=== PATIENT | male | born 1970 | race Two or more races ===

== ENCOUNTER 2022-12-17 17:59 | Emergency (ER) | payer BC ==
[2022-12-17] MEDS ORDERED: Promethazine 12.5 MG in Sodium Chloride 0.9% 50 ML IV ONE (19:05)
[2022-12-17] MEDS ORDERED: Sodium Chloride 0.9% 1,000 ML IV ONE (19:05)
[2022-12-17] MEDS ORDERED: Sodium Chloride 0.9% 10 ML Syringe FLUSH PRN (19:05)
[2022-12-17 19:35] LABS: BASOPHILS PERCENT AUTO 0.6 % (0.3-3.8); EOSINOPHILS ABSOLUTE AUTO 0.3 x10-3/uL (0.0-0.6); EOSINOPHILS PERCENT AUTO 3.4 % (0.1-6.8); HEMATOCRIT 48.5 % (38.3-50.1); HEMOGLOBIN 16.2 g/dL (12.9-17.7); LYMPHOCYTES ABSOLUTE AUTO 2.6 x10-3/uL (0.5-4.5); LYMPHOCYTES PERCENT AUTO 31.7 % (15.8-45.3); MEAN CORPUSCULAR HEMOGLOBIN 29.7 pg (27.0-33.3); MEAN CORPUSCULAR HGB CONC 33.3 g/dL (28.7-35.3); MEAN CORPUSCULAR VOLUME 89.2 fL (80.8-98.7); MEAN PLATELET VOLUME 10.1 fL (6.7-11.0); MONOCYTES ABSOLUTE AUTO 0.7 x10-3/uL (0.0-1.2); MONOCYTES PERCENT AUTO 9.1 % (5.5-15.2); NEUTROPHILS ABSOLUTE AUTO 4.5 x10-3/uL (1.7-6.9); NEUTROPHILS PERCENT AUTO 55.2 % (40.3-71.8); PLATELET COUNT,PLT 204 x10(3)uL (117-477); RED BLOOD CELL COUNT 5.44 x10(6)uL (3.90-5.90); RED CELL DISTRIBUTION WIDTH 13.5 % (12.4-15.0); WHITE BLOOD CELL COUNT,WBC 8.2 x10-3/uL (3.2-10.1)
[2022-12-17 19:41] LABS: BLOOD UREA NITROGEN,BUN 14 mg/dL (7-18); BUN/CREATININE RATIO 15.6 (9-20); CALCIUM 8.9 mg/dL (8.6-10.2); CARBON DIOXIDE,CO2 25 mmol/L (21-32); CHLORIDE,CL 102 mmol/L (100-110); CREATININE 0.9 mg/dL (0.70-1.30); EST CRCL DRUG DOSING (CG) 106.58 mL/min; ESTIMATED GFR 103 mL/min (>60); GLUCOSE RANDOM 190 mg/dL (80-116); SODIUM,NA 136 mmol/L (135-145)
[2022-12-17 19:47] LABS: A/G RATIO 0.9; ALANINE AMINOTRANSFERASE,ALT 24 U/L (12-36); ALBUMIN 3.5 g/dL (3.5-5.2); ALKALINE PHOSPHATASE 79 IU/L (56-112); ASPARTATE AMNIOTRANSFERASE,AST 17 IU/L (5-25); BILIRUBIN TOTAL 0.8 mg/dL (0.1-1.3); MAGNESIUM 1.7 mg/dL (1.8-2.5); PROTEIN TOTAL,TP 7.5 g/dL (6.0-8.0)
[2022-12-17 19:51] LABS: TROPONIN I 4.9 pg/mL (4.0-60.3)
[2022-12-17] MEDS ORDERED: Promethazine 25 MG Tab PO ONE ×2 (20:50→21:00)
== END 2022-12-17 21:21 | disposition home or self-care (01) ==
LOC: FB.ED 17:59
DX: E86.0 Dehydration (principal); R10.13 Epigastric pain; R10.84 Generalized abdominal pain; I25.10 Atherosclerotic heart disease of native coronary artery without angina pectoris; I25.2 Old myocardial infarction; F17.210 Nicotine dependence, cigarettes, uncomplicated; Z88.0 Allergy status to penicillin; Z79.899 Other long term (current) drug therapy
CPT/HCPCS: 36415; 80053; 83690; 83735; 84484; 85025; 93005; 93010; 96361; 96374; 99283; 99284-25; A9270-GY; J2550; J3490; J7030

== ENCOUNTER 2023-01-31 14:34 | Emergency (ER) | payer BC ==
[2023-01-31] MEDS ORDERED: Sodium Chloride 0.9% 1,000 ML IV ONE (15:35)
[2023-01-31] MEDS ORDERED: Meclizine 25 MG Tab PO ONE (15:35)
[2023-01-31] MEDS ORDERED: Sodium Chloride 0.9% 10 ML Syringe FLUSH PRN (15:35)
[2023-01-31 15:55] LABS: BASOPHILS ABSOLUTE AUTO 0.1 x10-3/uL (0.0-0.3); EOSINOPHILS ABSOLUTE AUTO 0.2 x10-3/uL (0.0-0.6); EOSINOPHILS PERCENT AUTO 2.3 % (0.1-6.8); HEMATOCRIT 45.3 % (38.3-50.1); HEMOGLOBIN 15.3 g/dL (12.9-17.7); LYMPHOCYTES ABSOLUTE AUTO 2.4 x10-3/uL (0.5-4.5); LYMPHOCYTES PERCENT AUTO 24.3 % (15.8-45.3); MEAN CORPUSCULAR HGB CONC 33.9 g/dL (28.7-35.3); MEAN CORPUSCULAR VOLUME 88.7 fL (80.8-98.7); MEAN PLATELET VOLUME 9.8 fL (6.7-11.0); MONOCYTES ABSOLUTE AUTO 0.8 x10-3/uL (0.0-1.2); MONOCYTES PERCENT AUTO 7.6 % (5.5-15.2); NEUTROPHILS ABSOLUTE AUTO 6.5 x10-3/uL (1.7-6.9); NEUTROPHILS PERCENT AUTO 64.8 % (40.3-71.8); PLATELET COUNT,PLT 238 x10(3)uL (117-477); RED BLOOD CELL COUNT 5.11 x10(6)uL (3.90-5.90); RED CELL DISTRIBUTION WIDTH 13.1 % (12.4-15.0)
[2023-01-31 16:00] LABS: BILIRUBIN,URINE NEGATIVE (NEGATIVE); GLUCOSE,URINE >1000 mg/dL (NORMAL); KETONES,URINE NEGATIVE (NEGATIVE); LEUKOCYTE ESTERASE,URINE NEGATIVE (NEGATIVE); NITRITE,URINE NEGATIVE (NEGATIVE); OCCULT BLOOD,URINE NEGATIVE (NEGATIVE); PROTEIN,URINE NEGATIVE (NEGATIVE); UROBILINOGEN,URINE 1 mg/dL (NEGATIVE)
[2023-01-31 16:02] LABS: BLOOD UREA NITROGEN,BUN 15 mg/dL (7-18); BUN/CREATININE RATIO 12.5 (9-20); CARBON DIOXIDE,CO2 24 mmol/L (21-32); CHLORIDE,CL 100 mmol/L (100-110); CREATININE 1.2 mg/dL (0.70-1.30); EST CRCL DRUG DOSING (CG) 79.94 mL/min; ESTIMATED GFR 73 mL/min (>60); GLUCOSE RANDOM 178 mg/dL (80-116); POTASSIUM,K 4.3 mmol/L (3.5-5.3); SODIUM,NA 135 mmol/L (135-145)
[2023-01-31 16:03] LABS: APPEARANCE,URINE CLEAR (CLEAR); BACTERIA,URINE OCCASIONAL (NS); COLOR,URINE YELLOW (YELLOW); RBC,URINE NOT SEEN (0-5); SQUAMOUS EPITHELIAL CELLS,UR RARE (NS,R,O); WBC,URINE 0-5 (0-5)
[2023-01-31 16:08] LABS: A/G RATIO 0.9; ALANINE AMINOTRANSFERASE,ALT 21 U/L (12-36); ALBUMIN 3.6 g/dL (3.5-5.2); ALKALINE PHOSPHATASE 78 IU/L (56-112); ASPARTATE AMNIOTRANSFERASE,AST 17 IU/L (5-25); BILIRUBIN TOTAL 0.6 mg/dL (0.1-1.3); MAGNESIUM 1.8 mg/dL (1.8-2.5); PROTEIN TOTAL,TP 7.5 g/dL (6.0-8.0)
== END 2023-01-31 17:50 | disposition home or self-care (01) ==
LOC: FB.ED 14:34
DX: R42 Dizziness and giddiness (principal); E86.0 Dehydration; E11.9 Type 2 diabetes mellitus without complications; K21.9 Gastro-esophageal reflux disease without esophagitis; E78.00 Pure hypercholesterolemia, unspecified; I25.2 Old myocardial infarction; I25.10 Atherosclerotic heart disease of native coronary artery without angina pectoris; Z79.899 Other long term (current) drug therapy; Z88.0 Allergy status to penicillin
CPT/HCPCS: 36415; 80053; 81001; 83735; 85025; 86140; 93005; 96361; 96374; 99284-25; A9270-GY; J3360; J3490; J7030

== ENCOUNTER 2023-08-10 18:04 | Emergency (ER) | payer BC ==
[2023-08-10] MEDS ORDERED: Sodium Chloride 0.9% 10 ML Syringe FLUSH PRN (18:38)
[2023-08-10] MEDS ORDERED: Ondansetron 4 MG/2 ML SDV IVPUSH ONE (18:39)
[2023-08-10] MEDS ORDERED: Sodium Chloride 0.9% 1,000 ML IV SCH (18:45)
[2023-08-10 18:47] LABS: BASOPHILS ABSOLUTE AUTO 0.1 x10-3/uL (0.0-0.3); BASOPHILS PERCENT AUTO 1.1 % (0.3-3.8); EOSINOPHILS ABSOLUTE AUTO 0.4 x10-3/uL (0.0-0.6); EOSINOPHILS PERCENT AUTO 3.2 % (0.1-6.8); HEMATOCRIT 44.4 % (38.3-50.1); HEMOGLOBIN 15.5 g/dL (12.9-17.7); LYMPHOCYTES ABSOLUTE AUTO 2.9 x10-3/uL (0.5-4.5); MEAN CORPUSCULAR HEMOGLOBIN 31.7 pg (27.0-33.3); MEAN CORPUSCULAR VOLUME 90.5 fL (80.8-98.7); MEAN PLATELET VOLUME 10.1 fL (6.7-11.0); MONOCYTES ABSOLUTE AUTO 0.9 x10-3/uL (0.0-1.2); MONOCYTES PERCENT AUTO 7.8 % (5.5-15.2); NEUTROPHILS ABSOLUTE AUTO 7.2 x10-3/uL (1.7-6.9); NEUTROPHILS PERCENT AUTO 62.9 % (40.3-71.8); PLATELET COUNT,PLT 221 x10(3)uL (117-477); RED CELL DISTRIBUTION WIDTH 13.6 % (12.4-15.0); WHITE BLOOD CELL COUNT,WBC 11.5 x10-3/uL (3.2-10.1)
[2023-08-10 18:50] LABS: BLOOD UREA NITROGEN,BUN 17 mg/dL (7-18); BUN/CREATININE RATIO 15.5 (9-20); CALCIUM 8.8 mg/dL (8.6-10.2); CARBON DIOXIDE,CO2 27 mmol/L (21-32); CHLORIDE,CL 99 mmol/L (100-110); CREATININE 1.1 mg/dL (0.70-1.30); EST CRCL DRUG DOSING (CG) 83.67 mL/min; ESTIMATED GFR 81 mL/min (>60); GLUCOSE RANDOM 301 mg/dL (80-116); POTASSIUM,K 4.2 mmol/L (3.5-5.3); SODIUM,NA 134 mmol/L (135-145)
[2023-08-10 18:52] LABS: C-REACTIVE PROTEIN 0.77 mg/dL (<0.50)
[2023-08-10 18:56] LABS: ALANINE AMINOTRANSFERASE,ALT 17 U/L (12-36); ALBUMIN 3.6 g/dL (3.5-5.2); ALKALINE PHOSPHATASE 88 IU/L (56-112); ASPARTATE AMNIOTRANSFERASE,AST 14 IU/L (5-25); BILIRUBIN TOTAL 0.5 mg/dL (0.1-1.3); PROTEIN TOTAL,TP 7.3 g/dL (6.0-8.0)
[2023-08-10 19:45] LABS: BILIRUBIN,URINE NEGATIVE (NEGATIVE); GLUCOSE,URINE >1000 mg/dL (NORMAL); KETONES,URINE NEGATIVE (NEGATIVE); LEUKOCYTE ESTERASE,URINE NEGATIVE (NEGATIVE); NITRITE,URINE NEGATIVE (NEGATIVE); OCCULT BLOOD,URINE NEGATIVE (NEGATIVE); PROTEIN,URINE NEGATIVE (NEGATIVE); UROBILINOGEN,URINE NORMAL (NEGATIVE)
[2023-08-10] MEDS ORDERED: Iopamidol 755 Mg/ML 100 ML Bottle IV SCH (19:45)
[2023-08-10] MEDS ORDERED: Ketorolac 30 MG/ML SDV IVPUSH ONE (20:06)
[2023-08-10 20:11] LABS: APPEARANCE,URINE CLEAR (CLEAR); BACTERIA,URINE OCCASIONAL (NS); COLOR,URINE YELLOW (YELLOW); RBC,URINE NOT SEEN (0-5); SQUAMOUS EPITHELIAL CELLS,UR OCCASIONAL (NS,R,O); WBC,URINE 0-5 (0-5)
== END 2023-08-10 20:59 | disposition other institution (70) ==
LOC: FB.ED 18:04
DX: A08.4 Viral intestinal infection, unspecified (principal); E86.0 Dehydration; E78.00 Pure hypercholesterolemia, unspecified; I25.10 Atherosclerotic heart disease of native coronary artery without angina pectoris; I25.2 Old myocardial infarction; E11.9 Type 2 diabetes mellitus without complications; K21.9 Gastro-esophageal reflux disease without esophagitis; Z90.49 Acquired absence of other specified parts of digestive tract; Z79.84 Long term (current) use of oral hypoglycemic drugs; Z79.899 Other long term (current) drug therapy; Z88.0 Allergy status to penicillin
CPT/HCPCS: 36415; 74177; 80053; 81001; 83605; 83690; 85025; 86140; 96361; 96374; 96375; 99285; J1885; J2405; J3490; J7030; Q9967